=== PATIENT | female | born 1945 | race Caucasian/White ===

== ENCOUNTER 2025-05-21 10:00 | Emergency (ER) | payer MEDICARE, MEDICAID ==
[~2025-05-21] VITALS: Ht 157.5 cm; Wt 47.7 kg
[~2025-05-21 10:00] MED LIST: ALEN70TA74 PO; ASCO500C49 PO; ASPI-543 PO; BACL10TA PO; FLU220IH INH; FLUT0.05 NAS; LOS25T GT; MONT-8 PO
--- NOTE | 2025-05-21 10:41 | ED.PDOC ---
History of Present Illness HPI Comments 79-year-old female presents to the ER with private caregiver prior medical history of asthma, cerebral palsy, osteoporosis, blindness, hearing loss and the chief complain of head pain. Caregiver reports That the patient has a gait when walking, and yesterday the patient tripped and fell hitting her face onto a wall. Patient has bruising on the left temporal, eye, nose and the metopic suture area. Denies chills, fever, N/V/D, SOB, CP. No other associated symptoms, modifiers, recent injuries or sick contacts present at this time. Chief Complaint: Facial Injury Time Seen by MD: 10:30 Primary Care Provider: DR. PEREZ Reviewed Notes: Nurses Notes, Medications, Allergies Allergies: Coded Allergies: NO KNOWN ALLERGIES (Unverified , 07/12/19) Home Meds Reported Medications Alendronate Sodium (Alendronate Sodium) 70 Mg Tab, 1 TAB PO QWEEKLY, #4 TAB 3 Refills 07/12/19 Ascorbic Acid (VITAMIN C) 500 Mg Cap, 500 MG PO, CAP 07/12/19 Montelukast Sodium (MONTELUKAST SODIUM) 10 Mg Tab, 1 TAB PO DAILY, #30 TAB 5 Refills 07/12/19 Losartan Potassium (Losartan Potassium) 25 Mg Tab, 12.5 MG GT, TAB 07/12/19 Fluticasone Propionate (Fluticasone Propionate) 0.05 % Cre, 50 MCG PAOLO for 30 Days, MCG 07/12/19 Fluticasone Propionate (Flovent Hfa) 220 Mcg Aer, 220 MCG INH Q12HR for 30 Days, MCG 07/12/19 Baclofen (Baclofen) 10 Mg Tab, 10 MG PO BIDPRN PRN for FOR MUSCLE SPASM for 30 Days, MG 07/12/19 Aspirin (Aspir-Low) 81 Mg Tab, 81 MG PO DAILY for 30 Days, MG 07/12/19 Information Source: Patient, 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 Manager (Private caregiver) Mode of Arrival: Ambulatory Severity: Moderate Timing: Hours Duration: Since onset, Hours Prehospital treatment: None Past Medical History PAST MEDICAL HISTORY: Asthma, Thyroid Past Medical History (Other): cerebral palsy, osteoporosis, blindness, hearing loss Surgical History: Denies all surgeries MEDICAL OFFICE ASSISTANT History: No Pertinent MEDICAL OFFICE ASSISTANT History Family History Family History: Reviewed,noncontributory to illness, Unknown Social History Smoker: Non-Smoker Alcohol: Denies ETOH Use Drugs: Denies Drug Use Lives In: Home Constitutional: denies: chills, diaphoresis, fatigue, fever, malaise, sweats, weakness, others EENTM: denies: blurred vision, double vision, ear bleeding, ear discharge, ear drainage, ear pain, ear ringing, eye pain, eye redness, hearing loss, mouth pain, mouth swelling, nasal discharge, nose bleeding, nose congestion, nose pain, photophobia, tearing, throat pain, throat swelling, voice changes, others Respiratory: denies: cough, hemoptysis, orthopnea, SOB at rest, shortness of breath, SOB with excertion, stridor, wheezing, others Cardiovascular: denies: chest pain, dizzy spells, diaphoresis, Dyspnea on exertion, edema, irregular heart beat, left arm pain, lightheadedness, palpitations, PND, syncope, others Gastrointestinal: denies: abdomen distended, abdominal pain, blood streaked bowels, constipated, diarrhea, dysphagia, difficulty swallowing, hematemesis, melena, nausea, poor appetite, poor fluid intake, rectal bleeding, rectal pain, vomiting, others Genitourinary: denies: abnormal vagina bleeding, burning, dyspareunia, dysuria, flank pain, frequency, hematuria, incontinence, pain, , vagina discharge, urgency, others Neurological: denies: dizziness, fainting, headache, left sided numbness, left sided weakness, numbness, paresthesia, pre-existing deficit, right sided num bness, right sided weakness, seizure, speech problems, tingling, tremors, weakness, others Musculoskeletal: denies: back pain, gout, joint pain, joint swelling, muscle pain, muscle stiffness, neck pain, others Integumetry: reports: bruises (left temporal, eye, nose and the metopic suture area); denies: change in color, change in hair/nails, dryness, laceration, lesions, lumps, rash, wounds, others Allergic/Immunocompromised: denies: Difficulty Healing, Frequent Infections, Hives, Itching, others Hematologic/Lymphatic: denies: anemia, blood clots, easy bleeding, easy bruising, swollen glands, others Endocrine: denies: excessive hunger, excessive sweating, excessive thirst, excessive urination, flushing, intolerance to cold, intolerance to heat, unexplained weight gain, unexplained weight loss, others Psychiatric: denies: anxiety, bipolar disorder, depression, hopeless, panic disorder, schizophrenia, sleepless, suicidal, others All Other Systems: Reviewed and Negative Physical Exam General Appearance: Moderate Distress, Normal HEENT: Normal ENT Inspection, Pharynx Normal, TMs Normal Neck: Full Range of Motion, Non-Tender, Normal, Normal Inspection Respiratory: Chest Non-Tender, Lungs Clear, No Accessory Muscle Use, No Respiratory Distress, Normal Breath Sounds Cardiovascular: No Edema, No JVD, No Murmur, No Gallop, Normal Peripheral Pulses, Regular Rate/Rhythm Breast Exam: Deferred Gastrointestinal: No Organomegaly, Non Tender, No Pulsatile Mass, Normal Bowel Sounds, Soft Genitalia: Deferred Pelvic: Deferred Rectal: Deferred Extremities: No calf tenderness, Normal capillary refill, Normal inspection, Normal range of motion, Non-tender, No pedal edema Musculoskeletal : Apperance: Normal Neurologic: Alert, business development engineer II-XII nml as Tested, No Motor Deficits, Normal Affect, Normal Mood, No Sensory Deficits Cerebellar Function: Normal Reflexes: Normal Skin: Dry, Normal Color, Warm, Wounds (Facial) Peripheral Pulses: 3+ Radial (R), 3+ Radial (L) Lymphatic: No Adenopathy Was a procedure done? Was a procedure done?: No Differential Dx Considerations may include: Head injury Musculoskeletal pain X-Ray, Labs, Meds, VS Vital Signs Date Time Temp Pulse Resp B/P (MAP) Pulse Ox O2 Delivery O2 Flow Rate FiO2 05/21/25 12:08 71 14 98 Room Air 05/21/25 12:08 97.7 71 14 153/87 (109) 98 97.7 05/21/25 10:27 72 05/21/25 10:05 97.6 73 16 194/80 (118) 96 97.6 Patient alert. Status post fall. Has bruising of the face. Vitals stable. Was given clonidine. CT of the head reviewed does not show any acute changes. Maxillofacial does not show any acute change. Explained to the family. Was told to follow up with her primary care physician. Was told to come back if there is any problem. Time of 1ST Reevaluation: 11:00 Reevaluation 1ST: Unchanged Patient Education/Counseling: Diagnosis, Treatment, Prognosis Family Education/Counseling: Diagnosis, Treatment, Prognosis SEPSIS Sepsis Screen Physician Orders Maxillofacial Without (05/21/25 10:17) Head Without Contrast (05/21/25 10:17) Electrocardigram (05/21/25 10:17) Vital Signs Date Time Temp Pulse Resp B/P (MAP) Pulse Ox O2 Delivery O2 Flow Rate FiO2 05/21/25 12:08 71 14 98 Room Air 05/21/25 12:08 97.7 71 14 153/87 (109) 98 97.7 05/21/25 10:27 72 05/21/25 10:05 97.6 73 16 194/80 (118) 96 97.6 Departure 1 Departure Time of Disposition: 11:17 Impression: Primary Impression: Head injury Qualified Codes: S09.90XA - Unspecified injury of head, initial encounter Additional Impression: Hypertensive emergency Disposition: 01 HOME / SELF CARE / HOMELESS Condition: Good Discharged With: Self Critical Care Note Critical Care Time?: No Stability Stability form required: No Heart Score Heart Score: Heart Score Response (Comments) Value History Slightly Suspicious 0 EKG Normal 0 Age >65 2 Risk Factors 1 or 2 risk factors 1 Troponin Normal limit 0 Total 3 I personally scribed for BRIANA FUENTES MD ([email or web address]) on 05/21/25 at 10:41. Electronically submitted by Jose Arango ([email or web address]). BRIANA FUENTES MD May 21, 2025 10:41
--- NOTE | 2025-05-21 11:16 | DVH ---
HISTORY: Trauma TECHNIQUE: Nonenhanced axial images through the facial bones with coronal and sagittal MPR. Radiation Dose Information: CT Dose: CTDI volume is 50.87 mGy. Dose-length product is 2184.13 mGy*cm COMPARISON: None FINDINGS: Mandible: Unremarkable Maxilla: Unremarkable Zygomatic arches: Unremarkable Nasal bone: Unremarkable Orbits: Unremarkable Sinuses: Clear Facial swelling: Mild diffuse anterior soft-tissue swelling. IMPRESSION: 1. No acute facial fractures. Radiation optimization: All CT scans at this facility use at least one of these dose optimization aria hniques: automated exposure control mA and/or kV adjustment per patient size (includes targeted exam s where dose is matched to clinical indication) or iterative reconstruction.
--- NOTE | 2025-05-21 11:24 | DVH ---
EXAM: CT HEAD WITHOUT CONTRAST INDICATION: FALL TECHNIQUE: CT of the head without intravenous contrast. Radiation Dose : 1. Head: CT Dose: CTDI volume is 61.5 mGy. Dose-length product is 2184 mGy*cm The dose indicators for CT are the volume Computed Tomography (CT) Dose Index (CTDIvol) and the Dose Length Product (DLP), and are measured in units of mGy and mGy-cm, respectively. These indicators are not patient dose, but values generated from the CT scanner acquisition factors. The report includes radiation exposure data for exposures received during this examination. COMPARISON: None FINDINGS: There is no evidence of acute intracranial hemorrhage, extra-axial collection, mass effect, midline s hift, herniation or hydrocephalus. The ventricles, sulci and cisterns are age appropriate. The walker-white differentiation is intact. Patchy periventricular and subcortical white matter hypoattenuation is nonspecific but may be related to small vessel ischemic disease. The visualized paranasal sinuses and mastoid air cells are clear. Mild left prefrontal soft tissue hematoma. IMPRESSION: No acute intracranial abnormality. Radiation optimization: All CT scans at this facility use at least one of these dose optimization aria hniques: automated exposure control mA and/or kV adjustment per patient size (includes targeted exam s where dose is matched to clinical indication) or iterative reconstruction.
[2025-05-21 12:08] VITALS: BP 153/87; PULSE 71; RESP 14; TEMP 97.7; O2SAT 98
--- NOTE | 2025-05-21 14:49 | ECG ---
[facility] Test Date: 2025-05-21 Test Time: 10:27:44 Pat Name: IRENE LOO Department: er Room: Gender: F Manager Demand: : 1945 Requested By: BRIANA FUENTES Order Number: [id number] Reading MD: Trav Kenney Measurements Intervals [place] Rate: 72 P: 76 IA: 149 QRS: 3 QRSD: 98 T: 42 QT: 415 QTc: 455 Interpretive Statements Sinus rhythm Electronically Signed On 05-21-2025 17:02:57 PDT by Trav Kenney Please click the below link to view image of tracing.
== END 2025-05-21 12:52 | disposition home or self-care (01) ==
LOC: ER 10:00
DX: S00.83XA Contusion of other part of head, initial encounter (principal); S09.8XXA Other specified injuries of head, initial encounter; I16.1 Hypertensive emergency; J45.909 Unspecified asthma, uncomplicated; G80.9 Cerebral palsy, unspecified; M81.0 Age-related osteoporosis without current pathological fracture; Z79.899 Other long term (current) drug therapy; Z79.82 Long term (current) use of aspirin; Z79.51 Long term (current) use of inhaled steroids; W01.0XXA Fall on same level from slipping, tripping and stumbling without subsequent striking against object, initial encounter; Y93.01 Activity, walking, marching and hiking; Y92.89 Other specified places as the place of occurrence of the external cause; Y99.8 Other external cause status
CPT/HCPCS: 70450; 70486; 93005